=== PATIENT | female | born 1955 | race Caucasian/White ===

== ENCOUNTER 2020-01-23 08:44 | Emergency (ER) | payer SELFPAY ==
--- NOTE | ~2020-01-23 | CT_ITS ---
EXAMINATION: CT abdomen pelvis w con DATE: 01/23/2020 09:24 INDICATION: Right upper quadrant abdominal pain. TECHNIQUE: Computed tomography (CT) of the abdomen and pelvis was performed with 100 mL Omnipaque-350 intravenous contrast. Automated exposure control and iterative reconstruction technique were employe d. The dose-length product was 1431.85 mGy-cm. COMPARISON: None FINDINGS: Lung bases are clear. Heart size is normal. Small to moderate-sized pericardial effusion. Cholecystec kandice clips at the gallbladder fossa. Numerous hepatic and bilateral renal cysts consistent with polyc ystic kidney disease. Severe cortical atrophy at the bilateral [place] kidneys with minimal parenchyma l enhancement. 2 cm high attenuation lesion in the right kidney which could represent either a solid nodule or more likely proteinaceous/hemorrhagic cyst. There are few small dystrophic calcifications v ersus renal stones at the [place] bilateral kidneys. There is focal cortical atrophy involving small p ortion of the lower pole of the transplanted right pelvic kidney. No hydronephrosis. Spleen, pancreas and bilateral adrenal glands are normal. 2 cm rim-enhancing splenic artery aneurysm. Normal appendix . The tip of the cecum extends into a small right pigtail in hernia. No bowel obstruction. There is m arked colonic diverticulosis with a sigmoid predominance. There is no adjacent inflammatory change t o suggest diverticulitis. Bladder, uterus and bilateral adnexa are unremarkable. There are retained catheter fragments in the right hemipelvis and along the right flank which extend towards the spine l ikely related to an earlier pain pump. No free intraperitoneal gas or fluid. No pathologically enlarg ed abdominal or pelvic lymphadenopathy. Mild thoracolumbar spondylosis. There is also a retained frac tured intrathecal catheter fragment in the central canal of the mid lumbar spine and upper sacrum. IMPRESSION: 1. Mild stranding along the ureter of a right pelvic transplant kidney and could not exclude ascendin g urinary tract infection. Correlate with urinalysis. 2. Dominant polycystic kidney disease with marked atrophy and numerous cysts at the bilateral kidneys as well as numerous hepatic cysts. 2 cm relatively high attenuation lesion in the right kidney most likely proteinaceous/hemorrhagic cyst although solid enhancing neoplasm cannot be absolutely excluded . Recommend correlation with any prior outside imaging or follow-up pre and postcontrast CT or MRI. 3. Extensive diverticulosis. 4. 2.0 cm splenic artery aneurysm. 5. [place] right spigelian hernia containing nonobstructed cecum. 6. Retained fragments of a likely intrathecal pain pump catheter including fractured catheter fragmen t in the central canal the lumbar spine and sacrum. 7. Small to moderate pericardial effusion. Reviewed, dictated and finalized at location [facility]. IMPRESSION: 1. Mild stranding along the ureter of a right pelvic transplant kidney and coul d not exclude ascending urinary tract infection. Correlate with urinalysis. 2. Dominant polycystic kidney disease with marked atrophy and numerous cysts at the bilateral kidneys as well as numerous hepatic cysts. 2 cm relatively high attenuation lesion in the right kidney most likely proteinaceous/hemorrhagic cy st although solid enhancing neoplasm cannot be absolutely excluded. Recommend c orrelation with any prior outside imaging or follow-up pre and postcontrast CT or MRI. 3. Extensive diverticulosis. 4. 2.0 cm splenic artery aneurysm. 5. [place] right spigelian hernia containing nonobstructed cecum. 6. Retained fragments of a likely intrathecal pain pump catheter including frac tured catheter fragment in the central canal the lumbar spine and sacrum. 7. Small to moderate
--- NOTE | 2020-01-23 08:46 | ED.ABDPAIN ---
HPI - Abdominal Pain General Chief Complaint: Abdominal Pain Stated Complaint: RUQ abdominal pain Time Seen by Provider: 01/23/20 08:45 History of Present Illness HPI narrative: 64 yo female w/ h/o IBS, cholecystectomy, renal transplant, IVP shunt presents with abdominal pain. She has had pain for the past few weeks. Originally in the RLQ and mild. Now in the RUQ and moderate. Constant. Worse with eating and taking a deep breath. Associated with mild nausea. Additionally she did feel as though her abdomen was distended last night. No vomiting, diarrhea, constipation, fever. Related Data Home Medications Medication Instructions Recorded Confirmed amlodipine 01/23/20 cyclosporine modified 01/23/20 doxazosin mg 01/23/20 duloxetine mg PO 01/23/20 omeprazole 01/23/20 prednisone 01/23/20 Allergies Allergy/AdvReac Type Severity Reaction Status Date / Time acetazolamide Allergy Mild Muscle Verified 01/23/20 08:54 Spasms Review of Systems Review of Systems: All systems reviewed & are unremarkable except as noted in HPI and below Constitutional: Constitutional: Denies fever(s) ENT: Denies sore throat Cardiovascular: Cardiovascular: Denies chest pain Respiratory: Respiratory: Denies cough and Denies dyspnea Gastrointestinal: Gastrointestinal: Reports abdominal pain, Denies constipation, Denies diarrhea, Reports nausea and Denies vomiting Genitourinary: Genitourinary: Denies hematuria and Denies dysuria Musculoskeletal: Musculoskeletal: Denies back pain Neurologic: Denies weakness [facility] Past Medical History Medical History IBS (irritable bowel syndrome) Surgical History Surgical History H/O tubal ligation History of cholecystectomy Kidney replaced by transplant Social History Social History (Updated 01/23/20 @ 09:12 by Yovany Cooney MD) Smoking status: Never smoker Gender identity (if verbalized by the patient): Female Exam Const: General: no acute distress and alert Nutritional Appearance: obese Orientation/consciousness: patient oriented x3 HENMT: Head: normal to inspection Resp: Effort & Inspection: normal respiratory effort Auscultation: clear to auscultation bilaterally Cardio: Rate: regular rate Rhythm: regular rhythm GI: GI Palp: Yes Soft to palpation, Yes Tenderness to palpation present (GI) (RUQ), No Guarding due to palpation present (GI) and No Rebound tenderness present Skin: General skin exam: normal color Neuro: General: patient oriented x3, moves all extremities and CN's II-XI intact bilaterally Speech: normal speech Extrem: General: normal to inspection Course Vital Signs Vital signs: Vital Signs Temperature 36.6 C 01/23/20 08:48 Pulse Rate 100 01/23/20 08:48 Respiratory Rate 21 H 01/23/20 08:48 Blood Pressure 161/85 H 01/23/20 08:48 Pulse Oximetry 97 01/23/20 08:48 Temperature 36.6 C 01/23/20 08:48 Pulse Rate 68 01/23/20 10:52 Respiratory Rate 20 01/23/20 10:52 Blood Pressure 151/76 H 01/23/20 10:52 Pulse Oximetry 97 01/23/20 10:52 MDM - Abdominal Pain MDM Narrative Medical decision making narrative: Splenic aneurysm on CT. This is unlikely source of her pain, but cannot completely rule it out. I discussed the case with vascular at [facility]. They recommend transfer and maintaining the SBP <120. Differential Diagnosis Differential diagnosis: Likely acute appendicitis, constipation, diverticulitis, pancreatitis and small bowel obstruction Medical Records Attestation: I reviewed the patient's medical records. Lab Data Attestation: I reviewed the patient's lab results. Result diagrams: 01/23/20 08:57 01/23/20 09:16 Labs: Lab Results 01/23/20 01/23/20 01/23/20 Range/Units 08:57 08:57 09:16 WBC 16.0 H (4.5-10.0) K/mm3 RBC 4.63 (4.2-5.4) M/mm3 Hgb 14.0
[2020-01-23 08:48] VITALS: BP 161/85; PULSE 100; RESP 21; TEMP 36.6; O2SAT 97
[2020-01-23 09:09] LABS: Basophils Absolute Auto 0.1 K/mm3 (0.0-0.1); Basophils Percent Auto 0.4 % (0.2-1.2); Eosinophils Absolute Auto 0.4 K/mm3 (0-0.3); Eosinophils Percent Auto 2.6 % (0-4.4); Hematocrit 41.6 % (37.0-47.0); Immature Granulocyte Absolute 0.09 K/mm3 (0.00-0.031); Immature Granulocyte Percent A 0.6 % (0-0.5); Lymphocytes Absolute Auto 6.27 K/mm3 (0.9-3.2); Lymphocytes Percent Auto 39.2 % (18.3-44.2); Mean Corpuscular HGB Conc 33.7 g/dl (32-36); Mean Corpuscular Hemoglobin 30.2 pg (26-34); Mean Corpuscular Volume 89.8 fl (80-100); Mean Platelet Volume 10.7 fl (7.4-10.4); Monocytes Absolute Auto 0.9 K/mm3 (0.1-0.6); Monocytes Percent Auto 5.6 % (2.6-8.5); Neutrophils Absolute Auto 8.3 K/mm3 (1.3-6.7); Neutrophils Percent Auto 51.6 % (45.5-73.1); Platelet Count Result 264 k/mm3 (150-375); Red Blood Count 4.63 M/mm3 (4.2-5.4); Red Cell Distribution Width 13.2 % (11.5-14.5)
[2020-01-23] MEDS: METOCLOPRAMIDE HCL INJ 10 MG/2 ML VIAL IV PUSH (09:09)
--- NOTE | 2020-01-23 09:10 | PC.NURSE ---
Pt to CT scan via stretcher.
[2020-01-23 09:16] LABS: Alanine Aminotransferase 17 U/L (4-35); Albumin Level 3.8 g/dL (3.5-5.1); Alkaline Phosphatase 106 U/L (38-126); Aspartate Amino Transferase 19 U/L (14-36); Bilirubin,Total 0.7 mg/dL (0.2-1.3); Blood Urea Nitrogen 12 mg/dL (7-17); Calcium 9.2 mg/dL (8.4-10.2); Carbon Dioxide 26 mmol/L (22-30); Chloride 105 mmol/L (98-107); Estimated CRCL calculation 63 ml/min; Estimated Glomerular Filt Rate 56; Glucose 182 mg/dL (65-105); Lipase 98 U/L (23-300); Sodium 135 mmol/L (137-145)
[2020-01-23 09:17] LABS: Estimated CRCL calculation 69 ml/min; Estimated Glomerular Filt Rate > 60
[2020-01-23 09:46] VITALS: BP 159/84; PULSE 77; RESP 17; O2SAT 97
[2020-01-23 10:02] LABS: Add Urine Microscopic? YES; Appearance Urine Clear (Clear); Bilirubin Urine Negative (Negative); Blood Urine Negative (Negative); Color Urine Yellow (Yellow); Glucose Urine UA Negative (Negative); Ketones Urine Negative (Negative); Leukocyte Esterase Ur Negative LEU/UL (Negative); Mucus Urine Rare /lpf; Nitrate Urine Negative (Negative); Protein Urine 3+ mg/dL (Negative); Squamous Epithelial Cell Urine Occasional /hpf (Few); Urobilinogen Urine Negative mg/dL (<2.0); WBC Urine 0-3 /hpf
[2020-01-23 10:07] LABS: Specific Grav Ur 1.039 (1.001-1.035)
[2020-01-23 10:18] VITALS: BP 156/77; PULSE 76; RESP 18; O2SAT 96
[2020-01-23] MEDS: LABETALOL HCL INJ 100 MG/20 ML VIAL 10 MG IV PUSH (10:51)
[2020-01-23 10:52] VITALS: BP 151/76; PULSE 68; RESP 20; O2SAT 97
--- NOTE | 2020-01-23 11:15 | PC.NURSE ---
[facility] declined transfer to [facility] [place] [facility] accepted transfer to [facility] 1hr Trip # [id number]
[2020-01-23 11:31] VITALS: BP 137/64; PULSE 68; RESP 17; O2SAT 97
[2020-01-23 11:52] VITALS: BP 157/82; PULSE 75; RESP 15; O2SAT 99
== END 2020-01-23 11:55 | disposition short-term general hospital (02) ==
PROVIDERS: Emergency Provider Emergency Medicine; PCP Physician Assistant
DX: I72.8 Aneurysm of other specified arteries (principal); K58.9 Irritable bowel syndrome, unspecified; Z94.0 Kidney transplant status
CPT/HCPCS: 36415; 74177; 80053; 81001; 83690; 85025; 96365; 96375; 99285; J0131; J2765; Q9967

== ENCOUNTER 2021-08-28 15:13 | Emergency (ER) | payer BC, SELFPAY ==
[2021-08-28 15:23] VITALS: BP 152/75; PULSE 89; RESP 18; TEMP 37.2; O2SAT 96
--- NOTE | 2021-08-28 15:23 | ED.FEMALEGU ---
HPI - Female Genitourinary General Chief complaint: Urogenital-Female Stated complaint: UTI Time Seen by Provider: 08/28/21 15:24 Source: patient and family History of Present Illness HPI Narrative: patient presents with burning with urination. no back pain and no flank pain no gross hematuria. patient states that her renal md called in Cipro for her symptoms , patient was instructed to have urine and urinalysis prior to starting her cipro. MD elicited complaint: dysuria Related Data Home Medications Medication Instructions Recorded Confirmed amlodipine 01/23/20 cyclosporine modified 01/23/20 doxazosin mg 01/23/20 omeprazole 01/23/20 prednisone 01/23/20 ciprofloxacin HCl 08/28/21 08/28/21 Allergies Allergy/AdvReac Type Severity Reaction Status Date / Time acetazolamide Allergy Mild Muscle Verified 08/28/21 15:24 Spasms Review of Systems Review of Systems: CONSTITUTIONAL: Denies fever, chills, or sweats. EYES: Denies visual changes, redness, or discharge. ENT: Denies rhinorrhea, congestion, sore throat, or otalgia. CARDIOVASCULAR: Denies chest pain, palpitations, or edema. RESPIRATORY: Denies cough or dyspnea. GASTROINTESTINAL: Denies abdominal pain, nausea, vomiting, or diarrhea. GENITOURINARY: Denies dysuria or hematuria. SKIN: Denies rash or itching. MUSCULOSKELETAL: Denies back pain, joint pain, or myalgia. NEUROLOGIC: Denies headache, numbness, or weakness. PSYCHIATRIC: Denies anxiety or depression. [facility] Past Medical History Medical History (Updated 08/28/21 @ 15:34 by ALESSANDRO Calabrese) IBS (irritable bowel syndrome) Surgical History Surgical History H/O tubal ligation History of cholecystectomy Kidney replaced by transplant Social History Social History (Updated 01/23/20 @ 09:12 by Yovany Cooney MD) Smoking status: Never smoker Gender identity (if verbalized by the patient): Female Exam Narrative: CONSTITUTIONAL: Denies fever, chills, or sweats. EYES: Denies visual changes, redness, or discharge. ENT: Denies rhinorrhea, congestion, sore throat, or otalgia. CARDIOVASCULAR: Denies chest pain, palpitations, or edema. RESPIRATORY: Denies cough or dyspnea. GASTROINTESTINAL: Denies abdominal pain, nausea, vomiting, or diarrhea. GENITOURINARY: Denies dysuria or hematuria. SKIN: Denies rash or itching. MUSCULOSKELETAL: Denies back pain, joint pain, or myalgia. NEUROLOGIC: Denies headache, numbness, or weakness. PSYCHIATRIC: Denies anxiety or depression. The patient appeared well nourished and normally developed. Vital signs as documented. Head exam is unremarkable. No scleral icterus or corneal arcus noted. Neck is without jugular venous distension, thyromegaly, or carotid bruits. Carotid upstrokes are brisk bilaterally. Lungs are clear to auscultation and percussion. Cardiac exam reveals the PMI to be normally sized and situated. Rhythm is regular. First and second heart sounds normal. No murmurs, rubs or gallops. Abdominal exam reveals normal bowel sounds, no masses, no organomegaly and no aortic enlargement. Extremities are nonedematous and both femoral and pedal pulses are normal. Course Vital Signs Vital signs: Vital Signs Temperature 37.2 C 08/28/21 15:23 Pulse Rate 89 08/28/21 15:23 Respiratory Rate 18 08/28/21 15:23 Blood Pressure 152/75 H 08/28/21 15:23 Pulse Oximetry 96 08/28/21 15:23 Temperature 37.2 C 08/28/21 15:37 Pulse Rate 89 08/28/21 15:37 Respiratory Rate 18 08/28/21 15:37 Blood Pressure 152/75 H 08/28/21 15:37 Pulse Oximetry 96 08/28/21 15:37 Addressed elevated BP today. Today's blood pressure higher than recommended range. Discussed importance of follow -up with PCP and possible intermediate effects/cardiovascular events related to HTN. Currently patient denies headache, dizziness, vision changes, CP or shortness of breath. Critical dx considered and discussed w
[2021-08-28 15:37] VITALS: BP 152/75; PULSE 89; RESP 18; TEMP 37.2; O2SAT 96
== END 2021-08-28 16:09 | disposition home or self-care (01) ==
PROVIDERS: Emergency Provider Nurse Practitioner Family; PCP Physician Assistant
DX: N39.0 Urinary tract infection, site not specified (principal)
CPT/HCPCS: 81003; 87077; 87086; 87088; 87186; 99213; G0463